=== PATIENT | male | born 1990 | race Two or more races ===

== ENCOUNTER 2020-02-27 19:57 | Emergency (ER) | payer SELFPAY ==
[~2020-02-27] VITALS: Ht 182.9 cm; Wt 68.0 kg
[2020-02-27] MEDS ORDERED: ONDANSETRON ODT 4 MG TAB.RAPDIS SL ONE (20:15)
[2020-02-27] MEDS ORDERED: AZITHROMYCIN 250 MG TABLET PO ONE (20:15)
[2020-02-27] MEDS ORDERED: CEFTRIAXONE 1 G VIAL IM ONE (20:15)
[2020-02-27] MEDS ORDERED: CEFTRIAXONE 500 MG VIAL ONE (20:17)
[2020-02-27] MEDS ORDERED: ONDANSETRON ODT 4 MG TAB.RAPDIS ONE (20:17)
[2020-02-27] MEDS ORDERED: AZITHROMYCIN 250 MG TABLET ONE (20:17)
[2020-02-27] MEDS ORDERED: LIDOCAINE 0.5% MPF 50 ML VIAL ONE (20:22)
[2020-02-27] MEDS ORDERED: LIDOCAINE HCL 1% 20 ML VIAL ONE (20:24)
[2020-02-27 20:42] VITALS: BP 118/78
== END 2020-02-27 20:42 | disposition home or self-care (01) ==
LOC: ER 19:57
DX: A54.01 Gonococcal cystitis and urethritis, unspecified (principal)
CPT/HCPCS: 96372; 99283; J0696; J3490; A4663; Q0144; Q0162